=== PATIENT | female | born 1940 | race Caucasian/White ===

== ENCOUNTER 2016-06-19 11:01 | Observation (INO) | payer OTHER, BC ==
[2016-06-19 11:56] VITALS: BMI 37.5
[2016-06-19] MEDS ORDERED: ALBUTEROL SO4 2.5/IPRATROPIUM 0.5 INH SOL 3 ML VIAL.NEB. NEB ONE ×2 (14:05→14:30)
[2016-06-19 14:26] LABS: INR 1.6 (0.82-1.09); PROTHROMBIN TIME (PATIENT) 17.8 SEC (9.98-11.88)
[2016-06-19 14:29] LABS: ACTIVATED PTT 43.4 SECONDS (26.9-34.4)
[2016-06-19 14:30] LABS: ALBUMIN 3.3 g/dl (3.4-5.0); CALCIUM 8.6 mg/dL (8.5-10.1); CREATININE 1.2 mg/dL (0.55-1.02)
[2016-06-19 14:34] LABS: BILIRUBIN,TOTAL 0.4 mg/dL (0.2-1.0); TOT PROT 7.2 g/dl (6.4-8.2); TROPONIN I 0.02 ng/ml (0.00-0.05)
--- NOTE | 2016-06-19 15:02 | PDOC ---
History of Present Illness - General Chief Complaint: Cold Symptoms Stated Complaint: SOB, COUGH Time Seen by Provider: 06/19/16 13:10 History Source: Patient Exam Limitations: No Limitations - History of Present Illness Initial Comments: 06/19/16 14:57 76 yr female with multiple medical problems presents to the ER with cough weakness , night sweats since 2015 not getting better. Pt denies chest pain, denies abd pain or back pain , states decreased appetite, has been urinating more at night. Timing/Duration: reports: changing over time, getting worse Severity: reports: moderate Associated Symptoms: reports: cough, fever/chills Past History - Past Medical History Allergies/Adverse Reactions: Allergies Allergy/AdvReac Type Severity Reaction Status Date / Time No Known Drug Allergies Allergy Verified 06/19/16 11:52 Home Medications: Ambulatory Orders Aspirin [ASA -] 81 mg PO DAILY 06/19/16 Atorvastatin Ca [Lipitor] 5 mg PO HS 06/19/16 Carvedilol [Coreg -] 12.5 mg PO BID 06/19/16 Escitalopram Oxalate [Lexapro -] 5 mg PO DAILY 06/19/16 Furosemide [Lasix -] 40 mg PO DAILY 06/19/16 Levothyroxine [Synthroid -] 125 mcg PO DAILY 06/19/16 Losartan Potassium [Cozaar -] 50 mg PO DAILY 06/19/16 Nilotinib HCl [Tasigna] 300 mg PO BID 06/19/16 Trazodone HCl 75 mg PO HS 06/19/16 Warfarin Na [Coumadin -] 6 mg PO DAILY 06/19/16 Guaifenesin/D-Methorphan Hb [Diabetic Tussin Dm -] 5 ml PO Q6H PRN #0 ml Polyvinyl Alcohol [Artificial Tears] 1 drop OU QID PRN #0 drops 06/22/16 Warfarin Na [Coumadin -] 6 mg PO DAILY@1800 tablet 06/22/16 Anemia: No Asthma: No 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) Cardiac Disorders: Yes (CAD/Stents- no on ACs,AAA) CVA: No COPD: No CHF: Yes (Recently admitted at [facility]; required intubation, she says.) DVT: No Dementia: No Diabetes: No Dialysis: No GI Disorders: No Disorders: No HTN: Yes Hypercholesterolemia: Yes Kidney Stones: No Liver Disease: No Psychiatric Problems: Yes (ANXIETY) Suicide Attempt (Hx): No Seizures: No Thyroid Disease: Yes (Hypothyroidism/Cecile's) - Surgical History Abdominal Surgery: Yes (Colon resection for benign lesion/Hysterectomy) Appendectomy: No Cardiac Surgery: Yes (Stents 02/2012) Cholecystectomy: Yes (Laparoscopic) Lung Surgery: Yes (Pleural effusion and chest tube - 2013) Neurologic Surgery: Yes (Laminectomy) Orthopedic Surgery: (Laminectomy) - Psycho/Social/Smoking Cessation Hx Anxiety: No Suicidal Ideation: No Smoking Status: No Smoking History: Former smoker Have you smoked in the past 12 months: No Number of Cigarettes Smoked Daily: 0 If you are a former smoker, when did you quit?: 1974 Information on smoking cessation initiated: No Hx Alcohol Use: No Drug/Substance Use Hx: No Substance Use Type: None Hx Substance Use Treatment: No Respiratory Specific PMHX - Complaint Specific PMHX Angina: No Review of Systems - Review of Systems Able to Perform ROS?: Yes Is the patient limited Ukrainian proficient: No Constitutional: Yes: Symptoms Reported, Night Sweats HEENTM: No: Symptoms Reported Respiratory: Yes: Cough Neurological: Yes: Weakness *Physical Exam - Vital Signs Last Vital Signs Temp Pulse Resp BP Pulse Ox 97.6 F 66 18 112/70 97 06/19/16 11:52 06/19/16 11:52 06/19/16 11:52 06/19/16 11:52 06/19/16 11:52 - Physical Exam General Appearance: Yes: Nourished, Appropriately Dressed HEENT: positive: EOMI, FABBY, TMs Normal, Pharynx Normal Neck: negative: Tender Respiratory/Chest: positive: Normal Breath Sounds, Decreased Breath Sounds. negative: Chest Tender Cardiovascular: positive: Regular Rhythm, Regular Rate Gastrointestinal/Abdominal: positive: Normal Bowel Sounds, Soft. negative: Tender Musculoskeletal: positive: Normal Inspection. negative: CVA Tenderness (R), CVA Tenderness (L), Vertebral Tenderness Extremity: positive: Normal Capillary Refill, Normal Inspection. negative: Swelling, Calf Tenderness Integumentary: positive: Pale Neurologic: positive: Fully Oriented, Alert, Normal Mood/Affect, Normal Response , Motor Strength 5/5 ED Treatment Course - LABORATORY CBC & Chemistry Diagram: 06/22/16 06:00 06/21/16 06:45 - ADDITIONAL ORDERS Additional order review: Laboratory Results 06/19/16 06/19/16 06/19/16 13:55 13:55 13:55 INR 1.60 H D PTT (Actin FS) 43.4 H D Sodium 136 Potassium 4.1 Chloride 102 Carbon Dioxide 22 D Anion Gap 12 BUN 23 H D Creatinine 1.2 H D Creat Clearance w eGFR 43.45 Random Glucose 99 Lactic Acid 1.461 Calcium 8.6 Total Bilirubin 0.4 D AST 26 D ALT 20 Alkaline Phosphatase 56 Creatine Kinase 48 Troponin I 0.02 Total Protein 7.2 Albumin 3.3 L 06/19/16 13:30 Influenza Types A,B Antigen (TANJA) - Final Nasopharyngeal Swab - Final - RADIOLOGY Radiology Studies Ordered: Category Date Time Status CHEST PA & LAT [RAD] Stat Radiology 06/19/16 13:12 Taken - Medications Given in the ED: ED Medications Discontinued Medications Generic Name Dose Route Start Last Admin Trade Name Freq PRN Reason Stop Dose Admin Albuterol/Ipratropium 1 amp 06/19/16 14:05 06/19/16 14:37 Duoneb - NEB 06/19/16 14:06 1 amp ONCE ONE Administration Medical Decision Making - Medical Decision Making 06/19/16 15:01 cc: cough, fatigue worsening for 2 weeks with night sweats will do sepsis workup 06/19/16 15:[address] Atkinson if labs are normal CXR normal pt can be dc home to continue the levaquin pt was given . 06/19/16 16:24 labs and CXR reviewed with PMD. Pt wants to stay in hospital, feels to week to go home lives alone. aware and will obs patient. *DC/Admit/Observation/Transfer Diagnosis at time of Disposition: Dehydration - Discharge Dispostion Disposition: HOME Condition at time of disposition: Fair Admit: Yes Decision to Admit order Date/Time: 06/19/16 16:26
[2016-06-19 15:56] LABS: URINE APPEARANCE CLOUDY; URINE BILIRUBIN NEGATIVE (NEGATIVE); URINE BLOOD NEGATIVE (NEGATIVE); URINE COLOR DKYELLOW; URINE GLUCOSE (UA) NEGATIVE (NEGATIVE); URINE KETONE NEGATIVE (NEGATIVE); URINE NITRITE NEGATIVE (NEGATIVE); URINE UROBILINOGEN NEGATIVE E.U./dl (0.2-1.0)
[2016-06-19 15:58] LABS: BASOPHIL 1.5 % (0-2.0); EOSINOPHIL 2.3 % (0-4.5); MCH 27.1 pg (25.7-33.7); MCHC 32.1 g/dl (32.0-36.0); MEAN CELL VOLUME 84.4 fl (80-96); NEUTROPHILS 50.8 % (42.8-82.8); RDW 14.9 % (11.6-15.6); WHITE BLOOD COUNT 3.8 K/mm3 (4.0-10.0)
[2016-06-19] MEDS ORDERED: SODIUM CHLORIDE 1,000 ML IV SCH (16:00)
[2016-06-19 16:09] LABS: URINE LEUK ESTERASE 1+ (NEGATIVE); URINE PROTEIN 2+ (NEGATIVE)
[2016-06-19 16:15] LABS: URINE HYALINE CAST 14 /lpf; URINE MUCUS MODERATE; URINE RBC 3 /hpf (0-3); URINE WBC 14 /hpf (3-5)
[2016-06-19 17:20] LABS: MEAN PLT VOLUME 9.8 fl (7.5-11.1); PLATELET COMMENT2 NO CLOTTING DETECTED; PLATELET COUNT 139 K/MM3 (134-434); PLATELET ESTIMATE ADEQUATE (NORMAL)
[2016-06-19] MEDS ORDERED: LEVOFLOXACIN 500 MG TABLET (FP) PO ONE (18:01)
[2016-06-19] MEDS ORDERED: WARFARIN NA 3 MG TABLET PO ONE (18:02)
[2016-06-19] MEDS ORDERED: WARFARIN NA 5 MG TABLET (UD) ONE (18:45)
[2016-06-19] MEDS ORDERED: LEVOFLOXACIN 500 MG TABLET (FP) ONE (18:45)
[2016-06-19] MEDS ORDERED: WARFARIN NA 1 MG TABLET (FP) ONE (18:45)
--- NOTE | 2016-06-19 19:59 | HP ---
Admitting History and Physical - Primary Care Physician PCP: Serena Atkinson - Admission Chief Complaint: profuse sweating History of Present Illness: has had a dry, non-productive cough for 1 week with associated chills and profuse sweating. poor appetite and minimal po intake History Source: Patient Limitations to Obtaining History: No Limitations - Past Medical History Cardiovascular: Yes: AFIB (paroxysmal-s/p cardioversion x2), CAD (LAD,DI stents LAD restenosis, s/p baloon angioplasty preop card.cath. showed clear coronaries), CHF, HTN, Mitral Insufficiency Pulmonary: Yes: COPD Heme/Onc: Yes: Other (CML since Fall 2012) Psych: Yes: Anxiety Endocrine: Yes: Hypothyroidism (Cecile's) - Past Surgical History Past Surgical History: Yes: Colectomy (Partial colon resection for polyps), Hysterectomy (partial , then total), Laminectomy (1979 lower bacvk) - Smoking History Smoking history: Former smoker Have you smoked in the past 12 months: No Aproximately how many cigarettes per day: 0 If you are a former smoker, when did you quit?: 1974 - Alcohol/Substance Use Hx Alcohol Use: No - Social History ADL: Independent History of Recent Travel: No Home Medications - Allergies Allergies/Adverse Reactions: Allergies Allergy/AdvReac Type Severity Reaction Status Date / Time No Known Drug Allergies Allergy Verified 06/19/16 11:52 - Home Medications Home Medications: Ambulatory Orders Aspirin [ASA -] 81 mg PO DAILY 06/19/16 Atorvastatin Ca [Lipitor] 5 mg PO HS 06/19/16 Carvedilol [Coreg -] 12.5 mg PO BID 06/19/16 Escitalopram Oxalate [Lexapro -] 5 mg PO DAILY 06/19/16 Furosemide [Lasix -] 40 mg PO DAILY 06/19/16 Levothyroxine [Synthroid -] 125 mcg PO DAILY 06/19/16 Losartan Potassium [Cozaar -] 50 mg PO DAILY 06/19/16 Nilotinib HCl [Tasigna] 300 mg PO BID 06/19/16 Trazodone HCl 75 mg PO HS 06/19/16 Warfarin Na [Coumadin] 6 mg PO DAILY 06/19/16 Family Disease History - Family Disease History Family Disease History: Diabetes: Brother, Heart Disease: Brother Review of Systems - Review of Systems Constitutional: reports: Chills, Diaphoresis, Fever, Loss of Appetite, Night Sweats, Weakness Eyes: denies: No Symptoms HENT: denies: No Symptoms Neck: denies: No Symptoms Cardiovascular: denies: No Symptoms Respiratory: reports: Cough, Exercise Intolerance Gastrointestinal: denies: No Symptoms Musculoskeletal: denies: No Symptoms Endocrine: denies: No Symptoms Psychiatric: denies: No Symptoms Physical Examination Vital Signs: Vital Signs Temperature 97.6 F 06/19/16 11:52 Pulse Rate 66 06/19/16 18:52 Respiratory Rate 18 06/19/16 18:52 Blood Pressure 118/64 06/19/16 18:52 O2 Sat by Pulse Oximetry (%) 96 06/19/16 18:52 Constitutional: Yes: Anxious, Obese Eyes: Yes: Conjunctiva Clear HENT: Yes: Normocephalic Neck: Yes: Trachea Midline Cardiovascular: Yes: Regular Rate and Rhythm Respiratory: Yes: CTA Bilaterally (coarse BS bilaterally) Gastrointestinal: Yes: Normal Bowel Sounds, Soft Musculoskeletal: Yes: WNL Extremities: Yes: WNL Edema: No Imaging - Results Chest X-ray: Report Reviewed Problem List - Problems (1) Dehydration Code(s): E86.0 - DEHYDRATION (2) Atrial fibrillation Assessment/Plan: received fluids in the er Code(s): I48.91 - UNSPECIFIED ATRIAL FIBRILLATION (3) CAD (coronary artery disease) Code(s): I25.10 - ATHSCL HEART DISEASE OF [place] CORONARY ARTERY W/O ANG PCTRS Qualifiers: Coronary Disease-Associated Artery/Lesion type: [place] artery Associated angina: without angina (4) CML (chronic myelocytic leukemia) Code(s): C92.10 - CHRONIC MYELOID LEUK, BCR/ABL-POSITIVE, NOT ACHIEVE REMIS (5) HTN (hypertension) Code(s): I10 - ESSENTIAL (PRIMARY) HYPERTENSION Qualifiers: Hypertension type: essential hypertension (6) Hypothyroid Code(s): E03.9 - HYPOTHYROIDISM, UNSPECIFIED Qualifiers: Hypothyroidism 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 Assessment/Plan will place on obs oral abx hold lasix received fluids in er-does not need more repeat INR in am
[2016-06-19] MEDS: ATORVASTATIN CA 10 MG TABLET (FP) PO SCH (21:50)
[2016-06-19] MEDS: traZODone HCL 50 MG TABLET (FP) PO SCH (21:50)
[2016-06-19] MEDS: CARVEDILOL 12.5 MG TABLET (FP) PO SCH (21:50)
[2016-06-20] MEDS ORDERED: LEVOFLOXACIN 500 MG TABLET (FP) PO SCH (06:00)
[2016-06-20] MEDS: LEVOTHYROXINE NA 125 MCG TABLET (FP) PO SCH (06:09)
[2016-06-20 07:42] LABS: MCH 27.6 pg (25.7-33.7); MEAN CELL VOLUME 83.9 fl (80-96); PLATELET COUNT 160 K/MM3 (134-434); RDW 14.9 % (11.6-15.6); WHITE BLOOD COUNT 2.3 K/mm3 (4.0-10.0)
[2016-06-20 08:06] LABS: ALBUMIN 2.7 g/dl (3.4-5.0)
[2016-06-20 08:09] LABS: BILIRUBIN,TOTAL 0.4 mg/dL (0.2-1.0); CREATININE 1.2 mg/dL (0.55-1.02); TOT PROT 5.6 g/dl (6.4-8.2)
[2016-06-20 08:25] LABS: INR 1.88 (0.82-1.09)
[2016-06-20] MEDS: ASPIRIN 81 MG CHEWABLE TABLETS PO SCH (09:10)
[2016-06-20] MEDS: CARVEDILOL 12.5 MG TABLET (FP) PO SCH ×2 (09:10→22:31)
[2016-06-20] MEDS: ESCITALOPRAM OXALATE 10 MG TABLET (FP) PO SCH (09:11)
--- NOTE | 2016-06-20 09:16 | PN ---
Progress Note (short form) - Note Progress Note: Very weak, had two episodes of severe night sweats last night-no fever documented Cough not-productive but present Vital Signs Period Temp Pulse Resp BP Sys/Quinonez Pulse Ox Last 24 Hr 97.4 F-98.1 F 57-74 18-20 105-137/63-70 96-97 CBC, BMP 06/20/16 06:30 06/20/16 06:30 S1S2 RRR Lungs coarse BS bilterally, cough present Abd soft NT no edema Imp Bronchitis? Viral infection COPD CML-has not taken her tasigna consistently for the past month Parox Afib Hypothyroidism CAD HTN Anxiety Obesity Plan Heme f/up ID eval increase warfarin oral levaquin Problem List - Problems (1) Dehydration Code(s): E86.0 - DEHYDRATION (2) Atrial fibrillation Code(s): I48.91 - UNSPECIFIED ATRIAL FIBRILLATION (3) CAD (coronary artery disease) Code(s): I25.10 - ATHSCL HEART DISEASE OF [place] CORONARY ARTERY W/O ANG PCTRS Qualifiers: Coronary Disease-Associated Artery/Lesion type: [place] artery Associated angina: without angina (4) CML (chronic myelocytic leukemia) Code(s): C92.10 - CHRONIC MYELOID LEUK, BCR/ABL-POSITIVE, NOT ACHIEVE REMIS (5) HTN (hypertension) Code(s): I10 - ESSENTIAL (PRIMARY) HYPERTENSION Qualifiers: Hypertension type: essential hypertension (6) Hypothyroid Code(s): E03.9 - HYPOTHYROIDISM, UNSPECIFIED Qualifiers: Hypothyroidism 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
[2016-06-20] MEDS ORDERED: LOSARTAN POTASSIUM 50 MG TABLET (FP) PO SCH (10:00)
[2016-06-20] MEDS: LOSARTAN POTASSIUM 50 MG TABLET (FP) PO SCH ×2 (10:31→22:32)
--- NOTE | 2016-06-20 13:05 | PN ---
Progress Note (short form) - Note Progress Note: ID consult dictated [email or web address] Leukopenia cough CML 76 year old female with worsening sweats over the last one month, had been intermittent in early May, now daily and profuse developed cough (nonproductive) 06/11 after she got home from her neice's house for [employer]- the two children there were sick with cough/nausea/vomiting/and diarrhea. 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
[2016-06-20 14:23] LABS: METAMYELOCYTE 1 % (0-2)
--- NOTE | 2016-06-20 16:01 | EKG ---
Test Reason : Blood Pressure : / mmHG Vent. Rate : 061 BPM Atrial Rate : 061 BPM P-R Int : 124 ms QRS Dur : 090 ms QT Int : 458 ms P-R-T Axes : 090 008 083 degrees QTc Int : 461 ms SINUS RHYTHM WITH PREMATURE ATRIAL COMPLEXES WITH ABERRANT CONDUCTION LEFT VENTRICULAR HYPERTROPHY WITH REPOLARIZATION ABNORMALITY ABNORMAL ECG WHEN COMPARED WITH ECG OF 19-JUN-2016 16:02, ABERRANT CONDUCTION IS NOW PRESENT Confirmed by BUCKY YU, CHRISTINE ([id number]) on 06/20/2016 4:01:00 PM Referred By: OFE Confirmed By:CHRISTINE LAWLER MD
--- NOTE | 2016-06-20 16:06 | EKG ---
Test Reason : Blood Pressure : / mmHG Vent. Rate : 059 BPM Atrial Rate : 059 BPM P-R Int : 100 ms QRS Dur : 094 ms QT Int : 458 ms P-R-T Axes : 018 006 091 degrees QTc Int : 453 ms POOR DATA QUALITY, INTERPRETATION MAY BE ADVERSELY AFFECTED SINUS BRADYCARDIA WITH SHORT W[place] LEFT VENTRICULAR HYPERTROPHY WITH REPOLARIZATION ABNORMALITY ABNORMAL ECG WHEN COMPARED WITH ECG OF 06-MAY-2016 17:01, W[place] INTERVAL HAS DECREASED Confirmed by CHRISTINE LAWLER MD ([id number]) on 06/20/2016 4:06:08 PM Referred By: OFE Confirmed By:CHRISTINE LAWLER MD
[2016-06-20] MEDS: ALBUTEROL SO4 0.083% IH SOL 2.5 MG/3 ML VIAL.NEB. NEB PRN ×2 (16:19→22:04)
[2016-06-20] MEDS ORDERED: WARFARIN NA 5 MG TABLET (UD) ONE (17:18)
[2016-06-20] MEDS ORDERED: WARFARIN NA 2 MG TABLET (UD) ONE (17:18)
[2016-06-20] MEDS ORDERED: WARFARIN NA 5 MG, WARFARIN NA 2 MG PO SCH (18:00)
[2016-06-20] MEDS ORDERED: WARFARIN NA 3 MG TABLET PO SCH ×2 (18:00)
--- NOTE | 2016-06-20 18:02 | CONSULT ---
Consult - text type - Consultation Consultation Note: 76 yr female with multiple medical problems presents to the ER with cough weakness , night sweats since 2015 not getting better. Pt denies chest pain, denies abd pain or back pain , states decreased appetite, has been urinating more at night. Associated Symptoms: reports: cough, profound night sweats for 1 month. = fatigue Past History HTN Hypercholesterolemia Hypothyroid CAD CHF afib CML Allergies/Adverse Reactions: Allergies Allergy/AdvReac Type Severity Reaction Status Date / Time No Known Drug Allergies Allergy Verified 06/19/16 11:52 Home Medications: Ambulatory Orders Aspirin [ASA -] 81 mg PO DAILY #0 05/12/16 Atorvastatin Ca [Lipitor] 5 mg PO HS #0 05/12/16 Carvedilol 12.5 mg PO BID #0 05/12/16 Escitalopram Oxalate [Lexapro -] 5 mg PO DAILY #0 05/12/16 Furosemide [Lasix -] 40 mg PO DAILY #0 05/12/16 Levothyroxine [Synthroid -] 125 mcg PO DAILY #0 05/12/16 Losartan Potassium 50 mg PO BID #0 05/12/16 Multivitamin [Poly-Vitamin] 1 each PO DAILY #0 05/12/16 Nilotinib HCl [Tasigna] 300 mg PO BID #0 05/12/16 Trazodone HCl 75 mg PO HS #0 05/12/16 Warfarin Na [Coumadin -] 6 mg PO DAILY #0 05/12/16 Current Medications Albuterol Sulfate (Ventolin 0.083% Nebulizer Soln -) 1 amp NEB Q6H PRN PRN Reason: SHORT OF BREATH/WHEEZING Last Admin: 06/20/16 16:19 Dose: 1 amp Aspirin (Asa -) 81 mg PO DAILY [facility] Last Admin: 06/20/16 09:10 Dose: 81 mg Atorvastatin Calcium (Lipitor -) 5 mg PO HS [facility] Last Admin: 06/19/16 21:50 Dose: 5 mg Carvedilol (Coreg -) 12.5 mg PO BID [facility] Last Admin: 06/20/16 09:10 Dose: 12.5 mg Escitalopram Oxalate (Lexapro -) 5 mg PO DAILY [facility] Last Admin: 06/20/16 09:11 Dose: 5 mg Levothyroxine Sodium (Synthroid -) 125 mcg PO DAILY@0700 [facility] Last Admin: 06/20/16 06:09 Dose: 125 mcg Losartan Potassium (Cozaar -) 50 mg PO BID [facility] Last Admin: 06/20/16 10:31 Dose: Not Given Trazodone HCl (Desyrel -) 75 mg PO HS [facility] Last Admin: 06/19/16 21:50 Dose: 75 mg Warfarin Sodium 5 mg/ Warfarin (Sodium 2 mg) 7 mg PO DAILY@1800 [facility] Last Admin: 06/20/16 17:20 Dose: 7 mg - Surgical History Abdominal Surgery: Yes (Colon resection for benign lesion/Hysterectomy) Appendectomy: No Cardiac Surgery: Yes (Stents 02/2012) Cholecystectomy: Yes (Laparoscopic) Lung Surgery: Yes (Pleural effusion and chest tube - 2013) Neurologic Surgery: Yes (Laminectomy) Orthopedic Surgery: (Laminectomy) - Psycho/Social/Smoking Cessation Hx former smoker - Vital Signs Last Vital Signs Temp Pulse Resp BP Pulse Ox 97.6 F 57 L 19 117/43 95 06/20/16 15:20 06/20/16 15:20 06/20/16 18:00 06/20/16 15:20 06/20/16 18:00 Cor: RSR, No murmurs, No gallops Lungs: Clear to P&A Abd: Soft, Normal bowel sounds, No organomegaly Ext:No significant edema Skin: No rashes, Integument intact Abnormal Lab Results 06/20/16 06/20/16 06/20/16 06:30 06:30 06:30 WBC 2.3 L D Neutrophils % 26.0 L D Eosinophils % 6.0 H D Band Neutrophils 17.0 H D Blast Cells 2 H INR 1.88 H Sodium 132 L Anion Gap -1 L BUN 27 H Creatinine 1.2 H Calcium 8.0 L Alkaline Phosphatase 42 L D Total Protein 5.6 L D Albumin 2.7 L A/P 76 y/o patient with h/o HTN, Hyperlipidemia, CAD, CHF, CML , now with profound night sweats for 1month , cough. Recent admissions for CHF/afib in Nov. Also with leukopenia ? viral vs concern for progrssionof CML will check smear/flow/FISH/PCR/cytogenetics will check CT chest Patient has been on nilotinib which has been on hold since admission. will restart pending above studies
--- NOTE | 2016-06-20 20:35 | CONS ---
DATE OF CONSULTATION: DATE OF DICTATION: 06/20/2016 INFECTIOUS DISEASE CONSULTATION REQUESTING PHYSICIAN: Serena Crenshaw M.D. CONSULTING PHYSICIAN: Edgardo Trevino M.D. HISTORY OF PRESENT ILLNESS: This is a 76-year-old woman with a 3-year history of CML. She is apparently in molecular remission and is on Tasigna. She was in the hospital in April when she had atrial fibrillation requiring cardioversion. This was subsequently followed by an immediate admission for congestive heart failure with the right sided pleural effusion. She was diuresed and went home. She reports that she has had sweats intermittently since May, she thinks perhaps even in April. She has intermittent nausea with her Tasigna, and she reports that the sweats started increasing as May progressed; by the end of the month, she was having profuse nightly sweats, and now she has sweats all the time. For she went to her niece's house, and her niece's children were not well. After she returned home, she developed a cough. This was the day after . She called her PMD and was prescribed Levaquin that she has been taking intermittently since that time. She was admitted yesterday with generalized weakness, poor appetite, and with this persistent cough that she has had since June 11, which she has had for 10 days now, and these profuse sweats. The sweats have really, when she looks back at it, she has had for the entire month of May but gradually worsening. PAST MEDICAL HISTORY: Notable for atrial fibrillation. She is status post cardioversion. She has history of coronary artery disease. She is status post balloon angioplasty, CHF, hypertension, mitral insufficiency, COPD, CML since 2012, anxiety and hypothyroidism. SURGICAL HISTORY: Notable for colectomy. She had a partial colon resection for polyps, hysterectomy, and laminectomy. She has a history of anxiety as well. She is a former smoker and quit smoking in 1974. There is no history of any substance use. ALLERGIES: She has no known drug allergies. MEDICATION: At home include aspirin, atorvastatin, Coreg, lexapro, Lasix, Synthroid, Cozaar, Tasigna, trazodone, warfarin, and the Levaquin she has been taking since after . FAMILY HISTORY: She has a brother with diabetes and heart disease. REVIEW OF SYSTEMS: There has been no diarrhea, and there has been no vomiting. She has very poor appetite. PHYSICAL EXAMINATION: General: She is awake and alert. Vital signs: She has no fever. Temperature is 97.6. She has had no fever since admission. Pulse is 57. Blood pressure 117/43, respiratory rate 19. She is saturating 95% on room air. HEENT: Normocephalic. Eyes are anicteric. Neck: Supple. Lungs: Clear to auscultation. Heart: Regular rate and rhythm. Abdomen: Soft, nontender. Extremities: Without edema. LABORATORY: Notable for white count of 2.3, hemoglobin 12.6, platelets 160. Her INR is 1.8. BUN and creatinine are 27 and 1.2. Urinalysis shows 14 white cells. Her influenza screen in the emergency room was negative. Her blood cultures at 24 hours are negative. Chest x-ray shows a chronic left pleural effusion that is unchanged from prior. IMPRESSION: In summary, this is a 76-year-old woman with worsening sweats over the last 1 month, intermittent in early May now daily and profuse. She has a nonproductive cough that she has had since June 11. No fevers, no vomiting, no diarrhea. No sore throat. She has been on intermittent Levaquin since June 11 and has had intermittent nausea with her medications for months. She has a history of CML for the last 3 years on Tasigna. She has a left pleural effusion that has never been tapped. There is no history of tuberculosis. She has no pets. There has been no travel, and she was originally from the [place]. 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 I suggest at this time we obtain a CBC with a manual differential. I have called hematology. The profuse night sweats are concerning for worsening of her CML, perhaps transformation to a leukemia or a viral illness. Would obtain a Quantiferon gold and RSV antigen, a cryptococcal antigen. Would consider tapping the effusion, and would stop the Levaquin at this time as she has not really shown any improvement while taking this. She has taken 2 days here in the hospital and was taking it home prior to admission. Further recommendations to follow. EDGARDO TREVINO M.D. [id number]
[2016-06-20] MEDS: ATORVASTATIN CA 10 MG TABLET (FP) PO SCH (22:31)
[2016-06-20] MEDS: traZODone HCL 50 MG TABLET (FP) PO SCH (22:40)
[2016-06-21] MEDS: LEVOTHYROXINE NA 125 MCG TABLET (FP) PO SCH (06:41)
[2016-06-21] MEDS: ALBUTEROL SO4 0.083% IH SOL 2.5 MG/3 ML VIAL.NEB. NEB PRN (07:27)
[2016-06-21 08:23] LABS: MCH 27.7 pg (25.7-33.7); MCHC 33.3 g/dl (32.0-36.0); MEAN PLT VOLUME 9.1 fl (7.5-11.1); PLATELET COUNT 169 K/MM3 (134-434); RDW 14.6 % (11.6-15.6); WHITE BLOOD COUNT 3.4 K/mm3 (4.0-10.0)
[2016-06-21 08:53] LABS: INR 2.51 (0.82-1.09); PROTHROMBIN TIME (PATIENT) 28.1 SEC (9.98-11.88)
[2016-06-21 09:02] LABS: BILIRUBIN,TOTAL 0.4 mg/dL (0.2-1.0); CALCIUM 8.4 mg/dL (8.5-10.1); CREATININE 1.1 mg/dL (0.55-1.02); TOT PROT 6.1 g/dl (6.4-8.2); URIC ACID 6.3 mg/dL (2.6-7.2)
[2016-06-21] MEDS: ASPIRIN 81 MG CHEWABLE TABLETS PO SCH (10:28)
[2016-06-21] MEDS: ESCITALOPRAM OXALATE 10 MG TABLET (FP) PO SCH (10:29)
[2016-06-21] MEDS: CARVEDILOL 12.5 MG TABLET (FP) PO SCH ×2 (10:29→22:04)
[2016-06-21] MEDS: LOSARTAN POTASSIUM 50 MG TABLET (FP) PO SCH ×2 (10:30→22:04)
--- NOTE | 2016-06-21 11:26 | PN ---
Progress Note (short form) - Note Progress Note: feels little better Cough not-productive but present CBC, BMP 06/21/16 06:45 06/21/16 06:45 Vital Signs Period Temp Pulse Resp BP Sys/Quinonez Pulse Ox Last 24 Hr 97.4 F-98.0 F 55-88 16-19 117-149/43-93 95-98 S1S2 RRR Lungs coarse BS bilaterally Abd soft NT no edema going for chest CT Imp Bronchitis? Viral infection COPD CML-has not taken her tasigna consistently for the past month Parox Afib Hypothyroidism CAD HTN Anxiety Obesity Plan consults appreciated f/up chest CT will d/w Problem List - Problems (1) Dehydration Code(s): E86.0 - DEHYDRATION (2) Atrial fibrillation Code(s): I48.91 - UNSPECIFIED ATRIAL FIBRILLATION (3) CAD (coronary artery disease) Code(s): I25.10 - ATHSCL HEART DISEASE OF [place] CORONARY ARTERY W/O ANG PCTRS Qualifiers: Coronary Disease-Associated Artery/Lesion type: [place] artery Associated angina: without angina (4) CML (chronic myelocytic leukemia) Code(s): C92.10 - CHRONIC MYELOID LEUK, BCR/ABL-POSITIVE, NOT ACHIEVE REMIS (5) HTN (hypertension) Code(s): I10 - ESSENTIAL (PRIMARY) HYPERTENSION Qualifiers: Hypertension type: essential hypertension (6) Hypothyroid Code(s): E03.9 - HYPOTHYROIDISM, UNSPECIFIED Qualifiers: Hypothyroidism 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
[2016-06-21] MEDS ORDERED: FUROSEMIDE 40 MG TABLET (FP) PO ONE (12:30)
[2016-06-21] MEDS ORDERED: ARTIFICIAL TEARS (POLYVINYL ALCOHOL 1.4%) OPTH DROPS OU PRN (13:46)
--- NOTE | 2016-06-21 16:04 | PN ---
Progress Note (short form) - Note Progress Note: remains afebrile less cough still with night sweats chest ct noted- improved left effusion Vital Signs Period Temp Pulse Resp BP Sys/Quinonez Pulse Ox Last 24 Hr 97.4 F-98.0 F 55-70 16-20 114-149/55-93 95-98 cor-rrr lungs clear abd soft,nt ext no edema CBC, BMP 06/21/16 06:45 06/21/16 06:45 Microbiology 06/19/16 13:55 Blood - Peripheral Venous Blood Culture - Preliminary NO GROWTH OBTAINED AFTER 48 HOURS, INCUBATION TO CONTINUE FOR 3 DAYS. 06/19/16 13:55 Blood - Peripheral Venous Blood Culture - Preliminary NO GROWTH OBTAINED AFTER 48 HOURS, INCUBATION TO CONTINUE FOR 3 DAYS. 06/21/16 06:45 Serum Cryptococcal Antigen - Preliminary 06/20/16 16:15 Urine For Antigen Detection Legionella Antigen - Final 06/20/16 16:15 Urine For Antigen Detection Streptococcus pneumoniae Antigen (M - Final 06/19/16 13:30 Nasopharyngeal Swab Respiratory Virus Panel - Preliminary 06/19/16 15:10 Urine - Urine Clean Catch Urine Culture - Final Contaminated: Please Repeat 06/19/16 13:30 Nasopharyngeal Swab Influenza Types A,B Antigen (TANJA) - Final 06/19/16 13:30 Nasopharyngeal Swab - Final a/p continued sweats leukopenia improved viral disease versus progression of cml blood work sent observe off antiibiotics would consider blood cultures off antibiotics as outpt if fevers persist esr/crp
[2016-06-21] MEDS ORDERED: WARFARIN NA 3 MG TABLET PO SCH (18:00)
[2016-06-21] MEDS ORDERED: PT OWN MED DRAWER 7, Y5N ONE (19:05)
--- NOTE | 2016-06-21 20:35 | PN ---
Progress Note (short form) - Note Progress Note: Patient seen and examined Denies any c/o Last Vital Signs Temp Pulse Resp BP Pulse Ox 97.9 F 59 L 18 119/51 95 06/21/16 22:00 06/21/16 22:00 06/21/16 22:00 06/21/16 22:00 06/21/16 18:00 HEENT: TONY, EOM Intact Cor: RSR, No murmurs, No gallops Lungs: Clear to P&A Abd: Soft, Normal bowel sounds, No organomegaly Ext:No significant edema Skin: No rashes, Integument intact Abnormal Lab Results 06/21/16 06/21/16 06/21/16 06:45 06:45 06:45 WBC 3.4 L D Monocytes % 11.0 H Eosinophils % 5.0 H INR 2.51 H D BUN 31 H Creatinine 1.1 H Calcium 8.4 L Total Protein 6.1 L Albumin 3.0 L Current Medications Albuterol Sulfate (Ventolin 0.083% Nebulizer Soln -) 1 amp NEB Q6H PRN PRN Reason: SHORT OF BREATH/WHEEZING Last Admin: 06/21/16 07:27 Dose: 1 amp Artificial Tears (Artificial Tears) 1 drop OU QID PRN PRN Reason: DRY EYES Last Admin: 06/21/16 16:55 Dose: 1 drop Aspirin (Asa -) 81 mg PO DAILY [facility] Last Admin: 06/21/16 10:28 Dose: 81 mg Atorvastatin Calcium (Lipitor -) 5 mg PO [facility] Last Admin: 06/21/16 22:04 Dose: 5 mg Carvedilol (Coreg -) 12.5 mg PO BID [facility] Last Admin: 06/21/16 22:04 Dose: 12.5 mg Escitalopram Oxalate (Lexapro -) 5 mg PO DAILY [facility] Last Admin: 06/21/16 10:29 Dose: 5 mg Furosemide (Lasix -) 40 mg PO DAILY [facility] Levothyroxine Sodium (Synthroid -) 125 mcg PO DAILY@0700 [facility] Last Admin: 06/21/16 06:41 Dose: 125 mcg Losartan Potassium (Cozaar -) 50 mg PO BID [facility] Last Admin: 06/21/16 22:04 Dose: 50 mg Trazodone HCl (Desyrel -) 75 mg PO [facility] Last Admin: 06/21/16 23:14 Dose: 75 mg Warfarin Sodium (Coumadin -) 6 mg PO DAILY@1800 [facility] Last Admin: 06/21/16 18:03 Dose: 6 mg A/P 76 y/o patient with h/o HTN, Hyperlipidemia, CAD, CHF, CML , now with profound night sweats for 1month , cough. Recent admissions for CHF/afib in Nov. 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 will restart pending above studies
[2016-06-21] MEDS: ATORVASTATIN CA 10 MG TABLET (FP) PO SCH (22:04)
[2016-06-21] MEDS: traZODone HCL 50 MG TABLET (FP) PO SCH (23:14)
[2016-06-22] MEDS: LEVOTHYROXINE NA 125 MCG TABLET (FP) PO SCH (06:30)
[2016-06-22 07:49] LABS: BASOPHIL 0.6 % (0-2.0); EOSINOPHIL 7.4 % (0-4.5); INR 2.97 (0.82-1.09); MCH 27.8 pg (25.7-33.7); MCHC 33.2 g/dl (32.0-36.0); MEAN CELL VOLUME 83.6 fl (80-96); MEAN PLT VOLUME 9.2 fl (7.5-11.1); NEUTROPHILS 52.2 % (42.8-82.8); PLATELET COUNT 148 K/MM3 (134-434); PROTHROMBIN TIME (PATIENT) 33.4 SEC (9.98-11.88); RDW 14.7 % (11.6-15.6); WHITE BLOOD COUNT 3.8 K/mm3 (4.0-10.0)
[2016-06-22] MEDS ORDERED: guaiFENesin/D-M SUGAR-FREE/ACLHOL-FREE 118 ML BOTTLE PO PRN (09:12)
--- NOTE | 2016-06-22 09:13 | PN ---
Progress Note (short form) - Note Progress Note: Patient seen and examined Continues to complain of sweats and persistent hacking non-productive cough Mild improvement in leukopenia. Still off dasatinib. Last Vital Signs Temp Pulse Resp BP Pulse Ox 97.6 F 50 L 18 147/68 95 06/22/16 06:00 06/22/16 06:00 06/22/16 06:00 06/22/16 06:00 06/22/16 02:00 HEENT: TONY, EOM Intact Oropharynx: No thrush, No mucositis Cor: irregular, No murmurs, No gallops Lungs:scattered rhonchi Abd: Soft, Normal bowel sounds, No organomegaly Ext:No significant edema Skin: No rashes, Integument intact CBC, BMP 06/22/16 06:00 06/21/16 06:45 Current Medications Generic Name Dose Route Start Last Admin Trade Name Freq PRN Reason Stop Dose Admin Albuterol Sulfate 1 amp 06/20/16 09:10 06/21/16 07:27 Ventolin 0.083% Nebulizer Soln - NEB 1 amp Q6H PRN Administration SHORT OF BREATH/WHEEZING Artificial Tears 1 drop 06/21/16 13:46 06/21/16 16:55 Artificial Tears OU 1 drop QID PRN Administration DRY EYES Aspirin 81 mg 06/20/16 10:00 06/21/16 10:28 Asa - PO 81 mg DAILY [facility] Administration Atorvastatin Calcium 5 mg 06/19/16 22:00 06/21/16 22:04 Lipitor - PO 5 mg HS [facility] Administration Carvedilol 12.5 mg 06/19/16 22:00 06/21/16 22:04 Coreg - PO 12.5 mg BID [facility] Administration Escitalopram Oxalate 5 mg 06/20/16 10:00 06/21/16 10:29 Lexapro - PO 5 mg DAILY [facility] Administration Furosemide 40 mg 06/22/16 10:00 Lasix - PO DAILY [facility] Levothyroxine Sodium 125 mcg 06/20/16 07:00 06/22/16 06:30 Synthroid - PO 125 mcg DAILY@0700 [facility] Administration Losartan Potassium 50 mg 06/20/16 10:00 06/21/16 22:04 Cozaar - PO 50 mg BID [facility] Administration Trazodone HCl 75 mg 06/19/16 22:00 06/21/16 23:14 Desyrel - PO 75 mg HS [facility] Administration Warfarin Sodium 6 mg 06/21/16 18:00 06/21/16 18:03 Coumadin - PO 6 mg DAILY@1800 [facility] Administration Impression: Probable viral illness with leukopenia secondary to underlying illness and/or meds CML- therapy being held A/C with coumadin Hypothyroidism on replacement Plan: To continue off dasatinib and follow up as out patient. Will need to monitor temps as out patient
--- NOTE | 2016-06-22 09:15 | DS ---
Physical Examination Vital Signs: Vital Signs Temperature 97.6 F 06/22/16 06:00 Pulse Rate 50 L 06/22/16 06:00 Respiratory Rate 18 06/22/16 06:00 Blood Pressure 147/68 06/22/16 06:00 O2 Sat by Pulse Oximetry (%) 95 06/22/16 02:00 Constitutional: Yes: Anxious, Obese Eyes: Yes: EOM Intact HENT: Yes: Normocephalic Neck: Yes: Trachea Midline Cardiovascular: Yes: Regular Rate and Rhythm Respiratory: Yes: CTA Bilaterally, Other (cough) Gastrointestinal: Yes: Normal Bowel Sounds, Soft Extremities: Yes: WNL Edema: No Labs: CBC, BMP 06/22/16 06:00 06/21/16 06:45 INR2.9 Discharge Summary Reason For Visit: DEHYDRATION Current Active Problems Atrial fibrillation and flutter (Acute) Cough (Acute) Dehydration (Acute) Hospital Course: Admitted for weakness/chest congestion/cough. Evaluation for leukemoid conversion so far looks good. blood cultures, flu swab/chest CT unremarkable. Likely had viral resp.tract infection. Stable to mt home with close outpt f/up. - Instructions Referrals: Serena Atkinson MD [Primary Care Provider] - Disposition: HOME - Home Medications Comprehensive Discharge Medication List: Ambulatory Orders Aspirin [ASA -] 81 mg PO DAILY 06/19/16 Atorvastatin Ca [Lipitor] 5 mg PO HS 06/19/16 Carvedilol [Coreg -] 12.5 mg PO BID 06/19/16 Escitalopram Oxalate [Lexapro -] 5 mg PO DAILY 06/19/16 Furosemide [Lasix -] 40 mg PO DAILY 06/19/16 Levothyroxine [Synthroid -] 125 mcg PO DAILY 06/19/16 Losartan Potassium [Cozaar -] 50 mg PO DAILY 06/19/16 Nilotinib HCl [Tasigna] 300 mg PO BID 06/19/16 Trazodone HCl 75 mg PO HS 06/19/16 Warfarin Na [Coumadin] 6 mg PO DAILY 06/19/16
[2016-06-22] MEDS: ASPIRIN 81 MG CHEWABLE TABLETS PO SCH (09:57)
[2016-06-22] MEDS: CARVEDILOL 12.5 MG TABLET (FP) PO SCH (09:57)
[2016-06-22] MEDS: ESCITALOPRAM OXALATE 10 MG TABLET (FP) PO SCH (09:57)
[2016-06-22] MEDS: LOSARTAN POTASSIUM 50 MG TABLET (FP) PO SCH (09:57)
[2016-06-22] MEDS ORDERED: FUROSEMIDE 40 MG TABLET (FP) PO SCH (10:00)
[2016-06-22 10:44] VITALS: BP 128/76; PULSE 76; TEMP 97.9
--- NOTE | 2016-06-22 12:53 | PATH ---
Surgical Pathology Report Patient Name: BAUDILIO BURK [facility]. Rec. #: [id number] /Age/Gender: 1940 (Age: 76) / F Account: [id number] Location: [address] [place] [address] Taken: 06/21/2016 Received: 06/21/2016 Reported: 06/22/2016 Physicians: Darlyn Donohue M.D. Specimen(s) Received PERIPHERAL BLOOD 2 GREEN 2 LAVENDER Clinical History History of CML Rule out transformation Final Diagnosis FLOW CYTOMETRY [facility] [place] ([id number] SHOWED THE FOLLOWING: INTERPRETATION: In the sample analyzed there is no evidence of B or T-cell proliferative disorders or increased blasts. Phenotype: In the sample analyzed, there is a mixed population of granulocytes, monocytes and lymphoid cells. CD34+ myeloblasts are < 0.1%. Granulocytes are 56% of total cells. Monocytes are 8% of total cells. There is no overt abnormal myeloid antigen expression. The B-cells (1% of total) appear polytypic. The T-cells (28% of total) show no vazquez T-cell antigenic deletion. Electronically Signed Cayden Perez M.D. Addendum Reported: 06/22/2016 Addendum Diagnosis BCR-ABL GENE REARRANGEMENT-QUANTITATIVE REAL TIME PCR ANALYSIS (IS) PERFORMED AND INTERPRETED AT [place], [place] ([id number]) SHOWED THE FOLLOWING: RESULTS: NEGATIVE BCR/ABL MAJOR BREAKPOINTS (b2a2 AND b3a2): NOT DETECTED. BCR/ABL MINOR BREAKPOINT (e1a2): NOT DETECTED. INTERPRETATION: NO BCR-ABL TRANSLOCATION WAS DETECTED IN THIS SAMPLE. Cayden Perez M.D. Addendum Reported: 06/27/2016 Addendum Diagnosis CYTOGENETIC KARYOTYPE ANALYSIS PERFORMED AND INTERPRETED AT [place], [place] ([id number]) SHOWED THE FOLLOWING: TEST RESULTS: Tissue Culture Failure. DIAGNOSTIC INTERPRETATION: This unstimulated peripheral blood specimen did not produce any mitotic cells and, therefore, chromosome analysis is not possible. A bone marrow aspirate, when clinically appropriate, is recommended. Cayden Perez M.D. Gross Description Received are 2 green top tubes and 2 lavender top tubes of blood which are sent [facility]. /06/21/2016 saudi06/21/2016
== END 2016-06-22 10:44 | disposition home or self-care (01) ==
LOC: JER 11:01 → JERFT 11:01 → JERBED 17:51 → J5S 19:10
PROVIDERS: ADMIT Internal Medicine; ATTEND Internal Medicine
DX: J06.9 Acute upper respiratory infection, unspecified (principal); E86.0 Dehydration; Z87.891 Personal history of nicotine dependence; I48.91 Unspecified atrial fibrillation; I25.10 Atherosclerotic heart disease of native coronary artery without angina pectoris; C92.10 Chronic myeloid leukemia, BCR/ABL-positive, not having achieved remission; I10 Essential (primary) hypertension; E03.9 Hypothyroidism, unspecified; I48.92 Unspecified atrial flutter; E66.9 Obesity, unspecified; J44.9 Chronic obstructive pulmonary disease, unspecified; I48.0 Paroxysmal atrial fibrillation; F41.9 Anxiety disorder, unspecified; R05 Cough; E78.00 Pure hypercholesterolemia, unspecified; I11.0 Hypertensive heart disease with heart failure; I50.9 Heart failure, unspecified; Z68.37 Body mass index [BMI] 37.0-37.9, adult
CPT/HCPCS: 36415; 71020-TC; 71250-TC; 80053; 81003; 81015; 82550; 83605; 83615; 84484; 84550; 85025; 85610; 85651; 85730; 86140; 86480; 86850; 86900; 86901; 87040; 87086; 87254; 87804; 87899; 88300-TC; 93005; 93010; 94640; 97116-GP; 97163-GP; 99285-25; G0378